=== PATIENT | male | born 1990 | race American Indian/Alaskan Native ===

== ENCOUNTER 2018-01-17 11:54 | Emergency (ER) | payer SELFPAY ==
[2018-01-17] MEDS ORDERED: TORADOL IV ONE (12:33)
--- NOTE | 2018-01-17 12:36 | Emergency Department Report ---
Blank Doc - Documentation Documentation: Patient is a 27-year-old male who is is complaining of suprapubic and right lower quadrant discomfort. Patient states the pain is a 8 out 10 in severity. Patient has not urinated since yesterday also not having bowel movements. Patient denies any fever nausea vomiting. Focused physical exam patient does have tenderness to palpation in the suprapubic region as well as right lower quadrant with no rebound. Ultrasound was used shows that the patient does have urine in the bladder however did not appear to be an extensive amount. Patient will be moved to a treatment room for IV pain meds laboratory studies will be done. Attempt to see if the patient will urinate on his own if not be straight cath. Patient also had a CT of abdomen and pelvis done and patient will be reassessed.
[2018-01-17 13:17] LABS: Alanine Aminotransferase 16 units/L (7-56); Albumin 4.4 g/dL (3.9-5); BUN/Creatinine Ratio 15; Blood Urea Nitrogen 9 mg/dL (9-20); Calcium 9.6 mg/dL (8.4-10.2); Hemolysis Index 77
[2018-01-17 14:45] LABS: Mucus,Urine 3+ /HPF
[2018-01-17 14:52] LABS: Bilirubin,Urine NEG (Negative); Blood,Urine LG (Negative); Color,Urine Yellow (Yellow); Urobilinogen,Urine < 2.0 mg/dL (<2.0)
--- NOTE | 2018-01-17 15:29 | Cat Scan Report ---
CT ABDOMEN PELVIS WITH CONTRAST: HISTORY: abdominal pain. COMPARISON: none. TECHNIQUE: Helical CT in 1.25mm intervals following IV contrast. Sagittal and coronal reconstructions. FINDINGS: Lung bases: Normal. Liver: Normal. Biliary system: Normal. Pancreas: Normal. Spleen: Normal. Kidneys/ureters/bladder: A 4.6 mm calculus is identified along the intramural portion of the right UVJ. Minimal distal right hydroureter is identified. The kidneys and left collecting system are unremarkable. The bladder is partially empty but within normal limits otherwise. Adrenal glands: Normal. Aorta: Normal. Intestines: Normal. Appendix: Normal. Ascites: None. Adenopathy: None. Musculoskeletal: Normal. IMPRESSION: 4.6 mm calculus at the right UVJ, no significant obstruction.
--- NOTE | 2018-01-17 15:54 | Emergency Department Report ---
ED Abdominal Pain HPI - General Chief Complaint: Abdominal Pain Stated Complaint: KIDNEY/LOWER PAIN Time Seen by Provider: 01/17/18 12:21 Source: patient Mode of arrival: Ambulatory Limitations: No Limitations - History of Present Illness Initial Comments: This is a 27-year-old male nontoxic, well nourished in appearance, no acute signs of distress presents to the ED with c/o of abdominal pain 1 day. Patient describes denies any vomiting or nausea. Patient also stated has decreased urination due to pain. Patient describes abdominal pain as cramping and aching with level of 3/10 mostly in the RLQ. Patient denies chest pain, short of breath, fever, chills, headache, stiff neck, numbness or tingling. Patient denies any diarrhea or constipation. Patient denies any recent travels. Patient denies any PMH or allergies. MD Complaint: abdominal pain -: days(s) (1) Location: RLQ Radiation: none Migration to: no migration Severity: mild Severity scale (0 -10): 3 Quality: cramping, aching Consistency: constant Improves With: nothing Worsens With: nothing Associated Symptoms: denies: nausea, vomiting, diarrhea, fever, chills, constipation, dysuria, hematemesis, hematochezia, melena, hematuria, anorexia, syncope - Related Data Previous Rx's Medication Instructions Recorded Last Taken Type Acetaminophen/Codeine [Tylenol 1 tab PO Q6H PRN #12 tab 01/17/18 Unknown Rx /Codeine # 3 tab] Ibuprofen [Motrin] 600 mg PO Q8H PRN #30 tablet 01/17/18 Unknown Rx Tamsulosin [Flomax] 0.4 mg PO QDAY #5 cap 01/17/18 Unknown Rx Allergies Allergy/AdvReac Type Severity Reaction Status Date / Time No Known Allergies Allergy Unverified 01/17/18 11:57 ED Review of Systems ROS: Stated complaint: KIDNEY/LOWER PAIN Other details as noted in HPI Constitutional: denies: chills, fever Eyes: denies: eye pain, eye discharge, vision change ENT: denies: ear pain, throat pain Respiratory: denies: cough, shortness of breath, wheezing Cardiovascular: denies: chest pain, palpitations Endocrine: no symptoms reported Gastrointestinal: abdominal pain (RLQ). denies: nausea, vomiting, diarrhea Genitourinary: denies: urgency, dysuria Musculoskeletal: denies: back pain, joint swelling, arthralgia Skin: denies: rash, lesions Neurological: denies: headache, weakness, paresthesias Psychiatric: denies: anxiety, depression Hematological/Lymphatic: denies: easy bleeding, easy bruising ED Past Medical Hx - Past Medical History Previous Medical History?: No - Surgical History Past Surgical History?: No - Social History Smoking Status: Current Every Day Smoker Substance Use Type: Alcohol, Marijuana - Medications Home Medications: Home Medications Medication Instructions Recorded Confirmed Last Taken Type Acetaminophen/Codeine [Tylenol 1 tab PO Q6H PRN #12 tab 01/17/18 Unknown Rx /Codeine # 3 tab] Ibuprofen [Motrin] 600 mg PO Q8H PRN #30 tablet 01/17/18 Unknown Rx Tamsulosin [Flomax] 0.4 mg PO QDAY #5 cap 01/17/18 Unknown Rx ED Physical Exam - General Limitations: No Limitations General appearance: alert, in no apparent distress - Head Head exam: Present: atraumatic, normocephalic - Eye Eye exam: Present: normal appearance Pupils: Present: normal accommodation - ENT ENT exam: Present: normal exam, mucous membranes moist - Neck Neck exam: Present: normal inspection, full ROM. Absent: tenderness, meningismus, lymphadenopathy - Respiratory Respiratory exam: Present: normal lung sounds bilaterally. Absent: respiratory distress, wheezes, rales, rhonchi, stridor, chest wall tenderness, accessory muscle use, decreased breath sounds, prolonged expiratory - Cardiovascular Cardiovascular Exam: Present: regular rate, normal rhythm, normal heart sounds. Absent: bradycardia, tachycardia, irregular rhythm, systolic murmur, diastolic murmur, rubs, gallop - GI/Abdominal GI/Abdominal exam: Present: soft, tenderness (RLQ), normal bowel sounds. Absent : distended, guarding, rebound, rigid, diminished bowel sounds - Expanded GI/Abdominal Exam Expanded GI/Abdominal exam: Absent: psoas sign, obturator sign, heel tap sign, Mix's sign, Rovsing's sign, tenderness at Mcburney's Point, ascites - Rectal Rectal exam: Present: deferred - Extremities Exam Extremities exam: Present: normal inspection, full ROM, normal capillary refill. Absent: tenderness - Back Exam Back exam: Present: normal inspection, full ROM. Absent: tenderness, CVA tenderness (R), CVA tenderness (L), muscle spasm, paraspinal tenderness, vertebral tenderness, rash noted - Neurological Exam Neurological exam: Present: alert, oriented X3, normal gait - Psychiatric Psychiatric exam: Present: normal affect, normal mood - Skin Skin exam: Present: warm, dry, intact, normal color. Absent: rash ED Course Vital Signs 01/17/18 01/17/18 11:57 16:13 Temperature 97.5 F L Pulse Rate 62 87 Respiratory 20 18 Rate Blood Pressure 154/97 Blood Pressure 138/87 [Left] O2 Sat by Pulse 100 100 Oximetry - Reevaluation(s) Reevaluation #1: 01/17/18 15:55 Patient is speaking in full sentences with no signs of distress noted. - Consultations Consultation #1: 01/17/18 15:56 Patient has been consulted with Selam Pinzon about patient history, physical exam, and labs/CT and examined and screened patient and agrees to ED plan of care and discharge plan of care. ED Medical Decision Making - Lab Data Result diagrams: 01/17/18 12:48 - Medical Decision Making This is a 27-year-old male that presents with right kidney stone. Patient is stable and was examined by me. There is slight abdominal tenderness. Negative signs of symptoms of appendicitis. Labs obtained. UA obtained. CT of abdomen obtained and dictated by the radiologist. Patient is notified of the report with no questions noted by the patient. Vital signs are stable prior to discharge. Patient received Toradol in the ED which patient stated symptoms has resolved and subsided. Patient stated he has normal urination now. A by mouth challenge has been obtained and patient tolerated well with no nausea vomiting. Patient was notified of strict precatuions of appendictis symptoms and to return to the ED if symptoms occurs as soon as possible. Patient was also instructed to Follow-up with a primary care doctor in 3-5 days or if symptoms worsen and continue return to emergency room as soon as possible. At time of discharge, the patient does not seem toxic or ill in appearance. No acute signs of distress noted. Patient agrees to discharge treatment plan of care. No further questions noted by the patient. Critical care attestation.: If time is entered above; I have spent that time in minutes in the direct care of this critically ill patient, excluding procedure time. ED Disposition Clinical Impression: Right kidney stone Disposition: DC-01 TO HOME OR SELFCARE Is pt being admited?: No Does the pt Need Aspirin: No Condition: Stable Instructions: Acetaminophen/Codeine (By mouth), Tamsulosin (By mouth), Kidney Stones (ED) Additional Instructions: Follow-up with a primary care doctor in 3-5 days or if symptoms worsen and continue return to emergency room as soon as possible. Do not operate any machinery while taking Tylenol with codeine as this may cause drowsiness. Prescriptions: Acetaminophen/Codeine [Tylenol /Codeine # 3 tab] 1 tab PO Q6H PRN #12 tab PRN Reason: Pain , Severe (7-10) Ibuprofen [Motrin] 600 mg PO Q8H PRN #30 tablet PRN Reason: Pain Tamsulosin [Flomax] 0.4 mg PO QDAY #5 cap Referrals: PRIMARY CAREMD [Primary Care Provider] - 3-5 Days SAMIA MO MD [Staff Physician] - 3-5 Days [facility] [Outside] - 3-5 Days [facility] [Outside] - 3-5 Days Forms: Work/School Release Form(ED)
[2018-01-17 16:14] VITALS: BP 138/87
== END 2018-01-17 16:14 | disposition home or self-care (01) ==
LOC: ED 11:54
DX: N20.0 Calculus of kidney (principal); F17.200 Nicotine dependence, unspecified, uncomplicated; F12.10 Cannabis abuse, uncomplicated
CPT/HCPCS: 36415; 74177; 80053; 81001; 96374; 99284; J1885; Q9967

== ENCOUNTER 2021-03-07 09:21 | Emergency (ER) | payer SELFPAY ==
--- NOTE | 2021-03-07 09:43 | Emergency Department Report ---
- General Stated complaint: BOIL TO BUUTOCK Time Seen by Provider: 03/07/21 09:39 - History of Present Illness Initial comments: The patient was evaluated in the emergency department for symptoms described in the history of present illness. He/she was evaluated in the context of the global COVID-19 pandemic, which necessitated consideration that the patient might be at risk for infection with the virus that causes COVID-19. Institutional protocols and algorithms that pertain to the evaluation of patients at risk for COVID-19 are in a state of rapid change based on information released by regulatory bodies including the CDC and federal and state organizations. These policies and algorithms were followed during the patient's care in the emergency department. Please note that these policies, procedures and recommendations changed on a rapid basis. 30-year-old -[place] male presents to the emergency room complaining of a boil to his buttocks on the left gluteal cleft x1 week. Patient states he has never had this before. States that it is very painful and is worse when he sits down. Patient states he been sitting in warm water but has not come to ahead. Patient denies any fever chills. States he has no past medical history currently takes no medications on a daily basis and has no known drug allergies. MD complaint: abscess/boil Onset/Timin -: week(s) Tetanus Up to Date: yes Location: buttocks Severity scale (0 -10): 8 - Related Data Previous Rx's Medication Instructions Recorded Last Taken Type Acetaminophen/Codeine [Tylenol 1 tab PO Q6H PRN #12 tab 01/17/18 Unknown Rx /Codeine # 3 tab] Ibuprofen [Motrin] 600 mg PO Q8H PRN #30 tablet 01/17/18 Unknown Rx Tamsulosin [Flomax] 0.4 mg PO QDAY #5 cap 01/17/18 Unknown Rx Acetaminophen/Codeine [Tylenol 1 tab PO Q4HR PRN #12 tablet 03/07/21 Unknown Rx /Codeine # 3 tab] Doxycycline Hyclate [Doxycycline 100 mg PO Q12HR 10 Days #20 tab 03/07/21 Unknown Rx Hyclate TAB] Ibuprofen [Motrin 600 MG tab] 600 mg PO Q8H PRN #30 tablet 03/07/21 Unknown Rx Allergies Allergy/AdvReac Type Severity Reaction Status Date / Time No Known Allergies Allergy Unverified 01/17/18 11:57 Abscess Boil HPI - HPI Stated Complaint: BOIL TO BUUTOCK Time Seen by Provider: 03/07/21 09:39 Home Medications: Previous Rx's Medication Instructions Recorded Last Taken Type Acetaminophen/Codeine [Tylenol 1 tab PO Q6H PRN #12 tab 01/17/18 Unknown Rx /Codeine # 3 tab] Ibuprofen [Motrin] 600 mg PO Q8H PRN #30 tablet 01/17/18 Unknown Rx Tamsulosin [Flomax] 0.4 mg PO QDAY #5 cap 01/17/18 Unknown Rx Acetaminophen/Codeine [Tylenol 1 tab PO Q4HR PRN #12 tablet 03/07/21 Unknown Rx /Codeine # 3 tab] Doxycycline Hyclate [Doxycycline 100 mg PO Q12HR 10 Days #20 tab 03/07/21 Unknown Rx Hyclate TAB] Ibuprofen [Motrin 600 MG tab] 600 mg PO Q8H PRN #30 tablet 03/07/21 Unknown Rx Allergies/Adverse Reactions: Allergies Allergy/AdvReac Type Severity Reaction Status Date / Time No Known Allergies Allergy Unverified 01/17/18 11:57 ED Review of Systems ROS: Stated complaint: BOIL TO BUUTOCK Other details as noted in HPI Comment: All other systems reviewed and negative ED Past Medical Hx - Social History Smoking Status: Current Every Day Smoker Substance Use Type: Alcohol, Marijuana - Medications Home Medications: Home Medications Medication Instructions Recorded Confirmed Last Taken Type Acetaminophen/Codeine [Tylenol 1 tab PO Q6H PRN #12 tab 01/17/18 Unknown Rx /Codeine # 3 tab] Ibuprofen [Motrin] 600 mg PO Q8H PRN #30 tablet 01/17/18 Unknown Rx Tamsulosin [Flomax] 0.4 mg PO QDAY #5 cap 01/17/18 Unknown Rx Acetaminophen/Codeine [Tylenol 1 tab PO Q4HR PRN #12 tablet 03/07/21 Unknown Rx /Codeine # 3 tab] Doxycycline Hyclate [Doxycycline 100 mg PO Q12HR 10 Days #20 tab 03/07/21 Unknown Rx Hyclate TAB] Ibuprofen [Motrin 600 MG tab] 600 mg PO Q8H PRN #30 tablet 03/07/21 Unknown Rx ED Physical Exam - General General appearance: alert, in no apparent distress, other (Appears to be uncomfortable) - Head Head exam: Present: atraumatic, normocephalic - Eye Eye exam: Present: normal appearance - Neck Neck exam: Present: full ROM - Respiratory Respiratory exam: Absent: accessory muscle use - Cardiovascular Cardiovascular Exam: Present: regular rate - External exam: Present: erythema, other (Patient has swelling indurated tender boil that has no discharge.) - Extremities Exam Extremities exam: Present: normal inspection, full ROM - Back Exam Back exam: Present: normal inspection, full ROM - Neurological Exam Neurological exam: Present: alert, oriented X3 - Psychiatric Psychiatric exam: Present: normal affect, normal mood - Expanded Skin Exam Expanded Type of lesion: Present: abscess Distribution of rash: other (Left gluteal cleft) Description of rash: Present: tenderness, erythematous, swelling, indurated. Absent: fluctuant ED Medical Decision Making - Medical Decision Making 30-year-old -[place] male presents to the emergency room complaining of a boil to his buttocks on the left gluteal cleft x1 week. Patient states he has never had this before. States that it is very painful and is worse when he sits down. Patient states he been sitting in warm water but has not come to ahead. Patient denies any fever chills. States he has no past medical history currently takes no medications on a daily basis and has no known drug allergies. Patient has an abscess to his left gluteal cleft which is not ready to be incised. Patient be placed on doxycycline 100 mg p.o. twice daily for 10 days. Encourage patient to put warm hot compress to boil to bring to ahead. Discussed with patient to take pain medication. Patient verbalized understanding. Critical care attestation.: If time is entered above; I have spent that time in minutes in the direct care of this critically ill patient, excluding procedure time. ED Disposition Clinical Impression: Abscess of buttock, left Disposition: 01 HOME / SELF CARE / HOMELESS Is pt being admited?: No Does the pt Need Aspirin: No Condition: Stable Instructions: Skin Abscess, [id number] Additional Instructions: Complete antibiotics as prescribed. Pain medication as needed. Do not operate heavy machinery while taking Tylenol 3. Continue with warm compresses to abscess. Follow-up with a primary care provider. Prescriptions: Doxycycline Hyclate [Doxycycline Hyclate TAB] 100 mg PO Q12HR 10 Days #20 tab Ibuprofen [Motrin 600 MG tab] 600 mg PO Q8H PRN #30 tablet PRN Reason: Pain Acetaminophen/Codeine [Tylenol /Codeine # 3 tab] 1 tab PO Q4HR PRN #12 tablet PRN Reason: Pain Referrals: BETH FERRIS MD [Staff Physician] - 3-5 Days Forms: Work/School Release Form(ED) Time of Disposition: 09:47
[2021-03-07 09:49] VITALS: BP 141/87
== END 2021-03-07 10:48 | disposition home or self-care (01) ==
LOC: ED 09:21
DX: L02.31 Cutaneous abscess of buttock (principal); F17.200 Nicotine dependence, unspecified, uncomplicated; F12.90 Cannabis use, unspecified, uncomplicated; Z72.89 Other problems related to lifestyle; Z79.899 Other long term (current) drug therapy
CPT/HCPCS: 99282